=== PATIENT | female | born 1990 | race Caucasian/White ===

== ENCOUNTER 2016-05-02 20:06 | Emergency (ER) | payer OTHER ==
[~2016-05-02] VITALS: Ht 165.1 cm; Wt 94.3 kg
[2016-05-02 20:12] VITALS: BP 130/88
--- NOTE | 2016-05-02 21:00 | NUR ---
26Y F BIB SPOUSE C/O OF MIDSTERNAL CP. PAIN 6/10 IN SCALE AT THIS POINT. DENIES N/V. SR IN THE MONITOR. DENIES SOB. V/S STABLE.
--- NOTE | 2016-05-02 21:16 | NUR ---
PT TAKEN TO XRAY
--- NOTE | 2016-05-02 21:24 | NUR ---
PT RETURN FROM XRAY TO LOBBY
--- NOTE | 2016-05-02 21:25 | NUR ---
PT TAKEN TO BED 1
--- NOTE | 2016-05-02 21:56 | NUR ---
Dr. Cardozo evaluating patient at bedside.
[2016-05-02] MEDS ORDERED: KETOROLAC 30 MG/ML VIAL IM ONE (22:15)
[2016-05-02] MEDS ORDERED: LORazepam 1 MG TAB PO ONE (22:15)
[2016-05-03 00:08] VITALS: BP 119/70
--- NOTE | 2016-05-03 00:08 | NUR ---
Patient discharged with v/s stable. Written and verbal after care instructions given and explained BY DR HANDY Patient alert, oriented and verbalized understanding of instructions. Ambulatory with steady gait. All questions addressed prior to discharge. ID band removed. Patient advised to follow up with PMD. Rx of ATIVAN AND NAPROSYN given. Patient educated on indication of medication including possible reaction and side effects. Opportunity to ask questions provided and answered.
== END 2016-05-03 00:08 | disposition home or self-care (01) ==
LOC: MED 20:06
DX: R07.89 Other chest pain (principal); R06.00 Dyspnea, unspecified; R20.2 Paresthesia of skin; Z88.8 Allergy status to other drugs, medicaments and biological substances
CPT/HCPCS: 36415; 71010; 80053; 81002; 81025; 82550; 82553; 83690; 84484; 85025; 93005; 96372; 99285; J1885